=== PATIENT | male | born 1960 | race Caucasian/White ===

== ENCOUNTER 2016-03-28 09:43 | Emergency (ER) | payer OTHER ==
[2016-03-28 10:06] VITALS: RESP 16
[2016-03-28 11:44] LABS: % IMMATURE GRANULYOCYTES 0.3 % (0.0-1.1); ABSOLUTE IMMATURE GRANULOCYTES 0.02 10^3/uL (0.00-0.10); ADD DIFF? NO; ADD MORPH? NO; ADD SCAN? NO; ATYPICAL LYMPHOCYTE FLAG 10 (0-99); FRAGMENT RBC FLAG 0 (0-99); HEMOGLOBIN 17.4 g/dL (13.7-17.5); LEFT SHIFT FLG 0 (0-99); LIPEMIA HEMOLYSIS FLAG 90 (0-99); MEAN CELL HEMOGLOBIN 32.7 pg (27.9-34.1); MEAN CELL HEMOGLOBIN CONCENTR. 34.8 g/dL (32.4-36.7); MEAN PLATELET VOLUME 9.8 fL (8.7-11.7); PLATELET CLUMPS FLAG 10 (0-99); PLATELET COUNT 210 10^3/uL (150-400); RED BLOOD CELL COUNT 5.32 10^6/uL (4.40-6.38); RED CELL DISTRIBUTION WIDTH 12.8 % (11.5-15.2)
[2016-03-28] MEDS ORDERED: IOPAMIDOL (ISOVUE 370) 100 ML BTL IV ONE (11:48)
[2016-03-28 11:50] LABS: ANION GAP 11 mEq/L (8-16); CALCIUM 9.4 mg/dL (8.5-10.4); CARBON DIOXIDE 28 mEq/l (22-31); CHLORIDE 102 mEq/L (97-110); GLOMERULAR FILTRATION RATE > 60; GLUCOSE 92 mg/dL (70-100); SODIUM 141 mEq/L (134-144)
--- NOTE | 2016-03-28 11:50 | UCPHY ---
H & P Time Seen by Provider: 03/28/16 11:07 Patient Type: New HPI/ROS: This patient presents with a chief complaint of left lower quadrant abdominal pain which began 2 days ago. The pain does not radiate. Pain is worse with movement and with coughing. His stooling has been normal and there has been no blood. He denies nausea or vomiting or fever. This patient had a normal creatinine in January of 2016. REVIEW OF SYSTEMS: Constitutional: Denies fever Eyes: No complaints ENT: Denies sore throat, congestion, ear pain Respiratory: Denies cough, denies shortness of breath Cardiac: Denies chest pain Gastrointestinal: See above Genitourinary: Denies frequency, urgency, dysuria or hematuria Musculoskeletal: No back pain Skin: No rash Neurological: No headache Past Medical/Surgical History: This patient had a colonoscopy on the of this month which was reported as negative although there was some diverticulosis. Smoking Status: Never smoked Physical Exam: GENERAL: Well-appearing, well-nourished and in no acute distress. HEAD: Atraumatic, normocephalic. EYES: sclera anicteric, conjunctiva are normal. ENT: nares patent, oropharynx clear without exudates. Moist mucous membranes. NECK: Normal range of motion, supple without lymphadenopathy or JVD. LUNGS: Breath sounds clear to auscultation bilaterally and equal. No wheezes rales or rhonchi. HEART: Regular rate and rhythm without murmurs, rubs or gallops. ABDOMEN: Snormoactive bowel sounds. No masses appreciated. There is no distention. There is marked tenderness in the left lower quadrant with guarding and rebound. There is tenderness to percussion as well. EXTREMITIES: Normal range of motion, NEUROLOGICAL: Cranial nerves II through XII grossly intact. Normal speech, normal gait. PSYCH: Normal mood, normal affect. SKIN: Warm, dry, normal turgor, no visible rashes or lesions. Constitutional: Initial Vital Signs Temperature (C) 36.8 C 03/28/16 10:04 Heart Rate 81 03/28/16 10:04 Respiratory Rate 16 03/28/16 10:04 Blood Pressure 139/94 H 03/28/16 10:04 O2 Sat (%) 99 03/28/16 10:04 O2 Delivery Mode Room Air Allergies/Adverse Reactions: cocoa [chocolate] Allergy (Intermediate, Verified 03/28/16 10:07) MCDANIEL, eye swelling Home Medications: Medication Instructions Recorded ASPIRIN 03/28/16 Ciprofloxacin [Cipro 500 mg] 500 mg PO BID #20 tab 03/28/16 metroNIDAZOLE [Flagyl 500 mg (*)] 500 mg PO TID #20 tab 03/28/16 Medical Decision Making - Diagnostics Imaging: A CT scan of the abdomen confirms the diagnosis of diverticulitis although there is no evidence for perforation or abscess formation. Differential Diagnosis: The diagnosis of diverticulitis is confirmed by CT and there is no evidence of other intra-abdominal pathology. - Data Points Laboratory Results: Laboratory Results 03/28/16 10:15 03/28/16 10:15 03/28/16 10:15 WBC 6.73 10^3/uL (3.80-9.50) RBC 5.32 10^6/uL (4.40-6.38) Hgb 17.4 g/dL (13.7-17.5) Hct 50.0 % (40.0-51.0) MCV 94.0 fL (81.5-99.8) MCH 32.7 pg (27.9-34.1) MCHC 34.8 g/dL (32.4-36.7) RDW 12.8 % (11.5-15.2) Plt Count 210 10^3/uL (150-400) MPV 9.8 fL (8.7-11.7) Neut % (Auto) 72.6 % (39.3-74.2) Lymph % (Auto) 11.9 L % (15.0-45.0) [place] % (Auto) 10.1 % (4.5-13.0) Eos % (Auto) 4.2 % (0.6-7.6) Baso % (Auto) 0.9 % (0.3-1.7) Nucleat RBC Rel Count 0.0 % (0.0-0.2) Absolute Neuts (auto) 4.89 10^3/uL (1.70-6.50) Absolute Lymphs (auto) 0.80 L 10^3/uL (1.00-3.00) Absolute Monos (auto) 0.68 10^3/uL (0.30-0.80) Absolute Eos (auto) 0.28 10^3/uL (0.03-0.40) Absolute Basos (auto) 0.06 10^3/uL (0.02-0.10) Absolute Nucleated RBC 0.00 10^3/uL (0-0.01) Immature Gran % 0.3 % (0.0-1.1) Immature Gran # 0.02 10^3/uL (0.00-0.10) Sodium 141 mEq/L (134-144) Potassium 4.0 mEq/L (3.5-5.2) Chloride 102 mEq/L (97-110) Carbon Dioxide 28 mEq/l (22-31) Anion Gap 11 mEq/L (8-16) BUN 13 mg/dL (7-23) Creatinine 1.0 mg/dL (0.7-1.3) Estimated GFR > 60 Glucose 92 mg/dL (70-100) Calcium 9.4 mg/dL (8.5-10.4) Departure - Departure Disposition: Home, Routine, Self-Care Clinical Impression: Diverticulitis large intestine Qualifiers: Diverticulitis bleeding: without bleeding Diverticulitis complication: without perforation or abscess Qualifier Code: (K57.32) Diverticulitis of large intestine without perforation or abscess without bleeding Condition: Good Instructions: Diverticulitis (ED) Additional Instructions: You should be recheck in 2-3 days if all goes well. If you develop fever, vomiting, blood in her stool or increasing pain you should be seen right away. Keep herself well hydrated but do not force herself to eat. Limit her activities for the next 2 days. Adult Pain & Fever Control: We recommend Acetaminophen (Tylenol) and Ibuprofen (Motrin, Advil) for pain and fever control. When fever is high or pain severe, both drugs can be used at the same time, but at different intervals. Please note the time differences. Your dose is: Acetaminophen [650]mg every 4 to 6 hours ibuprofen [600]mg every [6] hours with food OR naproxen Sodium (Aleve) [440]mg every 12 hours. Note: do not take Acetaminophen with Hydrocodone (Vicodin, Lortab) or Oxycodone (Percocet). These medications also contain Acetaminophen. No more than 3000 mg of Acetaminophen should be taken in 24 hours (for an adult) . The maximal dose of ibuprofen that it is safe in a 24-hour period is 2400 mg. You may take 400 mg every 4 hours, 600 mg every 6 hours or 800 mg every 8 hours safely. Prescriptions: Ciprofloxacin [Cipro 500 mg] 500 mg PO BID #20 tab metroNIDAZOLE [Flagyl 500 mg (*)] 500 mg PO TID #20 tab - PQRS PQRS Measurement: Not applicable
[2016-03-28 12:32] VITALS: BP 152/98; PULSE 76; TEMP 97.9; O2SAT 96
--- NOTE | 2016-03-28 12:34 | CT ---
CT Abdomen and Pelvis With Contrast History: Recent colonoscopy March 22, 2016, left lower quadrant pain. Nonsmoker with no cancer hist ory. Comparison: None available. Technique: Axial contrast-enhanced images were obtained through the abdomen and pelvis following the uneventful administration of 90 mL Isovue-300 intravenous contrast. Creatinine is 1.0. Dose reduction techniques were utilized. Findings: Abdomen: A 4-mm noncalcified right middle lobe nodule is present (series 3 image 15) and a 4-mm nonca lcified right lower lobe nodule is present (image 8). Additional tiny pulmonary nodules are present. A right lower lobe granuloma is noted. Heart size is normal. Tiny hypodensities in the liver are too small to characterize. The gallbladder, spleen, pancreas, adr enals, and kidneys are normal. There is mild thickening of the sigmoid colon with mild to moderate inflammation of the mesentery adj acent to a thickened diverticulum in the sigmoid colon. There is no free air or abscess. The colon an d small bowel are normal caliber. The appendix is normal. A tiny fat-containing periumbilical hernia is present. The aorta is normal caliber with minimal atherosclerosis. The IVC, hepatic, portal, splenic, and supe rior mesenteric veins are patent. No pathologically enlarged lymph nodes are identified. No aggressive osseous lesions are present. Pelvis: The bladder appears mildly thick-walled relative to the degree of distention. The prostate is upper normal in size.. There is trace free fluid in the pelvis. No pathologically enlarged lymph nod es are identified. No aggressive osseous lesions are identified. Impression: 1. Sigmoid diverticulitis with trace free fluid in the pelvis without evidence of perforation or absc ess. 2. Minimal diffuse bladder wall thickening, which could be related to bladder outlet obstruction, but is nonspecific. 3. Small pulmonary nodules measuring up to 4 mm, for which no further follow up is recommended per [place] eischner Society guidelines in a nonsmoker with no cancer history. Findings discussed with Dr. Mian Tello today at 1227 hours.
== END 2016-03-28 12:39 | disposition home or self-care (01) ==
LOC: CED 09:43
DX: K57.32 Diverticulitis of large intestine without perforation or abscess without bleeding (principal)
CPT/HCPCS: 74177-PO; 80048-PO; 85025-PO; 99203-PO; G0463-PO; Q9967

== ENCOUNTER 2017-08-12 16:00 | Emergency (ER) | payer OTHER ==
[2017-08-12] MEDS ORDERED: IBUPROFEN 600 MG TAB PO ONE (16:10)
[2017-08-12] MEDS ORDERED: TDAP ADULT 0.5 ML INJ (BOOSTRIX) IM ONE (16:16)
--- NOTE | 2017-08-12 16:16 | EDPHY ---
H & P Time Seen by Provider: 08/12/17 16:03 HPI/ROS: HPI Fall from ladder, left wrist injury. 56-year-old male by private vehicle with his . This patient was inside his house, he was up about 15 ft on a ladder trying to kill a wasp that was in his house when the ladder slid out from underneath him he fell with the latter landing on top of that and impacting mostly his left upper extremity and the left side of his chest. He denies any loss of consciousness. He did not hit his head. He denies any neck pain. He states that the wind was knocked out of him. Otherwise no abdominal pain. He has no other complaints. ROS: Constitutional: No fever, no chills. No weakness. Eyes: No discharge. No changes in vision. ENT: No sore throat. No nasal congestion or rhinorrhea. Respiratory: No cough. No shortness of breath. Cardiac: No chest pain, no palpitations. Gastrointestinal: No abdominal pain, no vomiting, no diarrhea. Genitourinary: No hematuria. No dysuria or increased frequency with urination. Musculoskeletal: No back pain. No neck pain. As above. Denies other extremity pain.. Skin: No rashes. Neurological: No headache. No focal weakness or altered sensation. Past medical history: Diverticulitis. He takes an aspirin daily. No other anticoagulant or antiplatelet agent. Social history: Nonsmoker. Here with his . Drinks alcohol socially. Had a beer at home earlier today. Physical Exam: General Appearance: Alert, no distress. This patient is responding to questions appropriately and in full sentences. This patient appears well- hydrated and well-nourished. Head: Normocephalic atraumatic. Face: Facial bones are stable on palpation. Eyes: Pupils equal and round and reactive to light, no pallor or injection. No lid erythema or edema. ENT, Mouth: Mucous membranes moist. Dentition is intact. No malocclusion of the jaw. No tongue lacerations or abrasions. Pharynx is clear. The bilateral nasal canals are clear. No septal hematoma. Respiratory: There are no retractions, lungs are clear to auscultation with good air movement bilaterally. Chest wall is stable to AP and lateral palpation. He has mild tenderness on palpation of the left lateral chest wall. No ecchymosis. No bony step-off or deformity noted. Cardiovascular: Regular rate and rhythm. No murmur. Gastrointestinal: Abdomen is soft and nontender, no masses, bowel sounds normal. No tenderness on palpation over his spleen. Neurological: Motor sensory function is intact. Cranial nerves are normal. Cerebellar function intact. Skin: Warm and dry, no rashes. No lacerations, abrasions or contusions. Musculoskeletal: Neck is supple and nontender. The trachea is midline. No midline cervical, thoracic, lumbar or sacral tenderness on palpation. No flank tenderness on palpation. Left upper extremity: Muscle compartments are soft throughout. He has tenderness on palpation of the distal radius on the dorsal radial aspect of the forearm. He has some faint ecchymosis with a nonsuturable linear abrasion and tenderness on palpation over the lateral aspect of the distal arm. The left upper extremity is neurovascularly intact. Extremities are symmetrical, full range of motion other than noted. All joints in the bilateral upper and bilateral lower extremities range without pain or impingement other than noted. No tenderness on palpation of the long bones in the bilateral upper and bilateral lower extremities other than noted. Psychiatric: No agitation. No depression. Database: EKG: Imaging: Left rib series x-ray with PA chest: Negative for pneumothorax. Cardiac mediastinal silhouette is unremarkable. No effusion or infiltrate. Fracture to the 7th and 8th ribs with minimal displacement. Interpreted by me. Left wrist x-ray: Significant for a comminuted fracture of the distal radius metaphysis with intra-articular extension. There is some minimal displacement. Interpreted by me. Left elbow and arm x-ray: Negative for fracture, subluxation, dislocation. Interpreted by me. Procedures: Procedure: Splint placement. A ortho glass sugar-tong splint was applied right wrist. After application of the splint I returned and re-examined the patient. The splint was adequately immobilizing the joint and distal to the splint the patient's circulation and sensation was intact. Emergency department course: His vital signs were reviewed and are normal. He was given 600 mg of ibuprofen for pain. He does not want anything stronger. He was sent for above x-rays. 5:00 p.m., patient re-evaluated. Discussed results of x-rays with him and his . Discussed diagnosis of closed distal radius fracture and rib fracture. His pain is currently tolerable and he is declining any stronger medications and ibuprofen. He was splinted as above. I discussed follow-up with Orthopedics early this week for re-evaluation and likely surgical management. He feels comfortable going home and I feel he is safe for discharge. He understands his follow-up. Return to emergency department precautions were reviewed with him. All of his questions were answered. He was discharged from the emergency department in good condition with his . Differential Diagnosis: The differential diagnosis on this patient includes but is not limited to left chest wall contusion distal radius fracture, rib fracture. Traumatic brain injury, cervical spine injury, pneumothorax, intra-abdominal traumatic injury unlikely. This represents a partial list of diagnoses considered. These considerations are based on history, physical exam, past history, reassessment and diagnostic testing. Smoking Status: Never smoked Constitutional: Initial Vital Signs Temperature (C) 36.5 C 08/12/17 16:05 Heart Rate 82 08/12/17 16:05 Respiratory Rate 16 08/12/17 16:05 Blood Pressure 131/89 H 08/12/17 16:05 O2 Sat (%) 97 08/12/17 16:05 O2 Delivery Mode Room Air Allergies/Adverse Reactions: cocoa [chocolate] Allergy (Intermediate, Verified 08/12/17 16:08) MCDANIEL, eye swelling Home Medications: Medication Instructions Recorded ASPIRIN 03/28/16 Hydrocodone/APAP 5/325 [[place] 1 - 2 tab PO Q4-6PRN PRN #10 tab 08/12/17 5/325 (*)] Medical Decision Making - Diagnostics Imaging Results: Imaging Impressions Wrist X-Ray 08/12/17 16:09 Impression: Comminuted distal left radial metaphyseal fracture with intra- articular extension. Ulnar styloid avulsion. Elbow X-Ray 08/12/17 16:10 Impression: Negative left elbow radiographs. Humerus X-Ray 08/12/17 16:10 Impression: 1. Negative radiographs of the left humerus. Ribs w/Chest X-Ray 08/12/17 16:10 Impression: 1. Mildly displaced fractures of the lateral aspects of the left seventh and eighth ribs. - Data Points Medications Given: Discontinued Medications Diphtheria/Tetanus/Acell Pertussis (Boostrix) 0.5 ml IM .ONCE ONE Stop: 08/12/17 16:17 Last Admin: 08/12/17 16:47 Dose: 0.5 ml Ibuprofen (Motrin) 600 mg PO EDNOW ONE Stop: 08/12/17 16:11 Last Admin: 08/12/17 16:15 Dose: 600 mg Departure - Departure Disposition: Home, Routine, Self-Care Clinical Impression: Fall from ladder, Contusion of left chest wall, Contusion of left arm, Left wrist fracture, Fracture of rib of left side Condition: Good Instructions: Wrist Fracture in Adults (ED), Rib Fracture (ED) Additional Instructions: Read and follow provided instructions. Follow-up with Orthopedics, Dr. eHnrry Ramsey, or 1 of his partners early this week for re-evaluation. Call his office Monday morning for appointment time. Explain this is for an emergency department follow-up. Ibuprofen dosin mg every 6 hours with meals for the next 3 days only. Take only as needed for pain. Narcotic pain medication: 1-2 every 4-6 hours as needed for pain. Do not drive while on this medication. Return to the emergency department for worsening pain, swelling, discoloration, loss of sensation or weakness in your hand or other serious concerns. Referrals: Amilcar Ramsey MD [Medical Doctor] - As per Instructions Prescriptions: Hydrocodone/APAP 5/325 [[place] 5/325 (*)] 1 - 2 tab PO Q4-6PRN PRN #10 tab PRN Reason: Pain, Moderate
[2017-08-12 18:15] VITALS: BP 126/70
== END 2017-08-12 17:40 | disposition home or self-care (01) ==
LOC: CED 16:00
DX: S52.572A Other intraarticular fracture of lower end of left radius, initial encounter for closed fracture (principal); S22.42XA Multiple fractures of ribs, left side, initial encounter for closed fracture; S40.022A Contusion of left upper arm, initial encounter; Z23 Encounter for immunization; Z79.82 Long term (current) use of aspirin; W11.XXXA Fall on and from ladder, initial encounter; Y92.009 Unspecified place in unspecified non-institutional (private) residence as the place of occurrence of the external cause
CPT/HCPCS: 71101-PO; 73060-PO; 73070-PO; 73110-PO; A4565

== ENCOUNTER 2017-08-27 07:54 | Emergency (ER) | payer OTHER ==
[2017-08-27 07:58] VITALS: BP 147/87
--- NOTE | 2017-08-27 08:13 | EDPHY ---
H & P Stated Complaint: left sided rash started monday, burning sensation Time Seen by Provider: 08/27/17 07:58 HPI/ROS: Chief Complaint: Skin rash HPI: 56-year-old male developed a skin rash below his left shoulder blade wrapping around over his left ribs 3 days ago. It feels like burning sensation , 3/10. It is developed some blisters. It is painful to touch. He recently fell off a ladder 2 weeks ago and sustained some rib contusions and a left wrist fracture. No shortness of breath. No cough. No fevers or chills. Does not have a prior history of skin disease or allergies in the past. ROS: 10 point Review of Systems is negative except as noted in the HPI. Social History: No smoking Family History: non-contributory Physical Exam: General: Awake, alert, no acute distress Left back and chest. Patient has a vesicular rash over an erythematous base in a single dermatome his left side, corresponding to approximately T 5 to T6. It does not cross the midline. The vesicles are clear. There is no purulence. This is on an erythematous base. Neuro: CN II-XII intact, Sensation grossly intact, Strength 5/5 in bilateral upper and lower extremities - Personal History Tetanus Vaccine Date: within 10 years - Medical/Surgical History Hx Asthma: No Hx Chronic Respiratory Disease: No Hx Diabetes: No Hx Cardiac Disease: No Hx Renal Disease: No Hx Cirrhosis: No Hx Alcoholism: No Hx HIV/AIDS: No Hx Splenectomy or Spleen Trauma: No Other PMH: diverticulitis - Social History Smoking Status: Never smoked Constitutional: Initial Vital Signs Temperature (C) 36.9 C 08/27/17 07:56 Heart Rate 87 08/27/17 07:56 Respiratory Rate 18 08/27/17 07:56 Blood Pressure 147/87 H 08/27/17 07:56 O2 Sat (%) 96 08/27/17 07:56 O2 Delivery Mode Room Air Allergies/Adverse Reactions: cocoa [chocolate] Allergy (Intermediate, Verified 08/27/17 07:56) MCDANIEL, eye swelling Home Medications: Medication Instructions Recorded ASPIRIN 03/28/16 Hydrocodone/APAP 5/325 [[place] 1 - 2 tab PO Q4-6PRN PRN #10 tab 08/12/17 5/325 (*)] Valacyclovir HCl [Valtrex] 1,000 mg PO TID #21 tab 08/27/17 Medical Decision Making ED Course/Re-evaluation: 56-year-old male with shingles. Will start him on Valtrex. He will follow up with primary care physician recheck. I have given precautions for wash her secondary infection. His pain is controlled. Departure - Departure Disposition: Home, Routine, Self-Care Clinical Impression: [place] Condition: Good Instructions: Shingles (ED) Additional Instructions: Follow up with primary care physician in 4-5 days for further evaluation. Return to the emergency depart for increasing redness, pain, fevers, chills, or any other concerns. Prescriptions: Valacyclovir HCl [Valtrex] 1,000 mg PO TID #21 tab
== END 2017-08-27 08:18 | disposition home or self-care (01) ==
LOC: CED 07:54
DX: B02.9 Zoster without complications (principal); Z79.82 Long term (current) use of aspirin